=== PATIENT | female | born 1995 | race African-American/Black ===

== ENCOUNTER 2019-12-07 06:52 | Emergency (ER) | payer OTHER ==
[~2019-12-07] VITALS: Ht 175.3 cm; Wt 104.3 kg
[2019-12-07 07:20] LABS: HEMATOCRIT 47.7 % (37.0-47.0); HEMOGLOBIN 15.9 gm/dL (12.0-15.0); MCH 25.5 pg (26.0-34.0); MCHC 33.4 g/dL (28.0-37.0); MCV 76.3 fL (80.0-100.0); PLATELET COUNT 335 thou/uL (150-400); RBC 6.25 mil/uL (4.20-5.00); RDW 16.1 % (10.5-14.5); WBC 22.1 thou/uL (4.0-11.0)
[2019-12-07 07:23] LABS: POTASSIUM 4.1 mmol/L (3.5-5.1)
[2019-12-07] MEDS ORDERED: INVEGA SUS117 MG/0.7 IM (07:27)
--- NOTE | 2019-12-07 08:37 | EKG ---
[facility] [place] [address] ELECTROCARDIOGRAM REPORT Name: SUJATHA JUDGETOSHIA Room #: [facility]#: [id number] Admission: 12/07/19 Attend Phys: Discharge: Date of : [birth year] Report #: [id number] THIS REPORT FOR: cc: SALOMON - Kendra family physician/PCP SALOMON - Kendra family physician/PCP Christian Caballero MD [facility] THIS REPORT FOR: //name// [facility] ED Test Date: 2019-12-07 Test Time: 07:01:49 Pat Name: JALEN JUDGE Department: Room: Gender: Ranch Cook: : 1995 Requested By: Srinivas Louis Order Number: [id number] MD: Christian Caballero Measurements Intervals [place] Rate: 125 P: 56 [place]: 116 QRS: 55 QRSD: 85 T: 9 QT: 314 QTc: 453 Interpretive Statements Sinus tachycardia Baseline wander in lead(s) V5 No previous ECG available for comparison Electronically Signed On 12-07-2019 8:36:48 CDT by Christian Caballero [email or web address] <ELECTRONICALLY SIGNED> By: Christian Caballero MD, [facility] 12/07/19835 0 0 Christian Caballero MD, [facility] /EPI
[2019-12-07 09:47] LABS: CALCIUM 8.8 mg/dL (8.5-10.1); CREATININE 1.2 mg/dL (0.6-1.0); TOTAL BILIRUBIN 0.4 mg/dL (0.2-1.0)
[2019-12-07 09:48] LABS: ALBUMIN 4.1 g/dL (3.4-5.0); TOTAL PROTEIN 8.2 g/dL (6.4-8.2)
[2019-12-07 10:29] LABS: URINE BILIRUBIN NEGATIVE (Negative); URINE BLOOD 1+ (Negative); URINE CLARITY CLEAR; URINE COLOR YELLOW; URINE GLUCOSE-RANDOM* 3+ (Negative); URINE KETONES 2+ (Negative); URINE LEUKOCYTES-REFLEX NEGATIVE (Negative); URINE NITRITE-REFLEX NEGATIVE (Negative); URINE PROTEIN (DIPSTICK) 3+ (Negative); URINE SPECIFIC GRAVITY 1.025 (1.005-1.035); URINE UROBILINOGEN 0.2 E.U./dl (0.2-1.0)
[2019-12-07 13:19] LABS: CHOLESTEROL 297 mg/dL (<200); HDL CHOLESTEROL 23 mg/dL (>40); TC:HDL 12.9 Ratio (Not establshd); TRIGLYCERIDE 2343 mg/dL (<150); VLDL 469 mg/dL (<40)
[2019-12-07 13:21] LABS: SERUM ASSESSMENT Gross Lipemia
[2019-12-07 14:28] LABS: CASTS None Seen /LPF (None Seen); SQUAMOUS 4-10 Moderate /LPF (0-3)
[2019-12-07 14:29] LABS: BACTERIA-REFLEX None Seen /HPF (None Seen); CRYSTALS None Seen /LPF (None Seen); URINE RBC 0-2 Rare /HPF (0-2); URINE WBC-REFLEX 0-5 Rare /HPF (0-5)
[2019-12-07 14:41] LABS: ANISOCYTOSIS 1+
[2019-12-07 14:58] VITALS: BP 158/98
== END 2019-12-07 15:08 | disposition short-term general hospital (02) ==
LOC: ER 06:52
PROVIDERS: Emergency Medicine
DX: K85.90 Acute pancreatitis without necrosis or infection, unspecified (principal); E11.10 Type 2 diabetes mellitus with ketoacidosis without coma; E78.5 Hyperlipidemia, unspecified; R11.2 Nausea with vomiting, unspecified; Z98.890 Other specified postprocedural states; Z97.5 Presence of (intrauterine) contraceptive device; Z90.6 Acquired absence of other parts of urinary tract; Z79.899 Other long term (current) drug therapy; Z87.891 Personal history of nicotine dependence

== ENCOUNTER 2020-05-13 21:27 | Emergency (ER) | payer OTHER ==
[~2020-05-13] VITALS: Ht 167.6 cm; Wt 113.4 kg
[~2020-05-13 21:27] MED LIST: INVEGA SUS117 MG/0.7 IM
[2020-05-13 21:58] LABS: ABSOLUTE NEUTROPHILS 11.7 thou/uL (1.4-8.2); BASOPHILS 0.3 % (0.0-2.0); HEMOGLOBIN 13.7 gm/dL (12.0-15.0); LYMPHOCYTES 17.3 % (24.0-44.0); MCH 24.5 pg (26.0-34.0); MCHC 31.8 g/dL (28.0-37.0); PLATELET COUNT 262 thou/uL (150-400); POLYS 75.4 % (36.0-66.0); RBC 5.58 mil/uL (4.20-5.00); WBC 15.5 thou/uL (4.0-11.0)
[2020-05-13 22:00] LABS: ANION GAP 9 mmol/L (7-16); BUN 8 mg/dL (7-18); CALCIUM 9.7 mg/dL (8.5-10.1); CHLORIDE 103 mmol/L (98-107); CO2 24 mmol/L (21-32); GLUCOSE 155 mg/dL (74-106); POTASSIUM 3.3 mmol/L (3.5-5.1); SODIUM 136 mmol/L (136-145)
[2020-05-13 22:06] LABS: ALBUMIN 3.8 g/dL (3.4-5.0); DIRECT BILIRUBIN < 0.1 mg/dL (<0.1-0.2); LIPASE 121 U/L (73-393); SGOT 19 U/L (15-37); SGPT 24 U/L (14-59); TOTAL BILIRUBIN 0.2 mg/dL (0.2-1.0); TOTAL PROTEIN 8.2 g/dL (6.4-8.2)
[2020-05-14 00:40] LABS: URINE BILIRUBIN NEGATIVE (Negative); URINE BLOOD TRACE (Negative); URINE CLARITY CLEAR; URINE COLOR YELLOW; URINE GLUCOSE-RANDOM* 2+ (Negative); URINE KETONES NEGATIVE (Negative); URINE LEUKOCYTES-REFLEX TRACE (Negative); URINE NITRITE-REFLEX NEGATIVE (Negative); URINE PROTEIN (DIPSTICK) 2+ (Negative); URINE SPECIFIC GRAVITY >= 1.030 (1.005-1.035); URINE UROBILINOGEN 0.2 E.U./dl (0.2-1.0)
[2020-05-14 00:48] LABS: BACTERIA-REFLEX >30 Many /HPF (None Seen); CASTS None Seen /LPF (None Seen); CRYSTALS None Seen /LPF (None Seen); MUCUS None Seen strn/LPF (None Seen); SQUAMOUS 0-3 Few /LPF (0-3); URINE RBC 0-2 Rare /HPF (0-2); URINE WBC-REFLEX >25 Many /HPF (0-5)
[2020-05-14] MEDS ORDERED: ZOFRAN ODT4 MG PO (02:23)
[2020-05-14] MEDS ORDERED: PRILOSEC OTC20 MG PO (02:23)
[2020-05-14] MEDS ORDERED: HYDROCODON-ACE1 EAC7 PO (02:23)
[2020-05-14] MEDS ORDERED: KEFLEX500 M1 PO (02:26)
[2020-05-14 02:50] VITALS: BP 126/72
== END 2020-05-14 02:51 | disposition home or self-care (01) ==
LOC: ER 21:27
PROVIDERS: Emergency Medicine
DX: N39.0 Urinary tract infection, site not specified (principal); K29.70 Gastritis, unspecified, without bleeding; E87.2 Acidosis; K85.90 Acute pancreatitis without necrosis or infection, unspecified; E11.9 Type 2 diabetes mellitus without complications; Z87.891 Personal history of nicotine dependence; Z79.899 Other long term (current) drug therapy